=== PATIENT | female | born 1990 | race African-American/Black ===

== ENCOUNTER 2017-03-27 04:00 | Emergency (ER) | payer BC, OTHER ==
[~2017-03-27] VITALS: Ht 165.1 cm; Wt 77.1 kg
--- NOTE | 2017-03-27 04:13 | NUR ---
PT TAKEN TO BED 4
--- NOTE | 2017-03-27 04:17 | NUR ---
Dr. Guerin evaluating patient at bedside.
[2017-03-27 04:19] VITALS: BP 145/84
[2017-03-27] MEDS ORDERED: NACL 0.9% 1,000 ML IV ONE ×2 (04:20→05:00)
[2017-03-27] MEDS ORDERED: ONDANSETRON 4 MG/2 ML VIAL IVP ONE (04:20)
[2017-03-27 04:37] LABS: BASOPHILS # (AUTO) 0.1 K/uL (0.00-0.22); BASOPHILS % (AUTO) 2.7 % (0.0-2.0); EOSINOPHILS # (AUTO) 0.1 K/uL (0-0.4); EOSINOPHILS % (AUTO) 1.4 % (0.0-4.0); HEMATOCRIT 39.6 % (36-48); HEMOGLOBIN 12.8 g/dL (12.0-16.0); LYMPHOCYTES # (AUTO) 1.4 K/uL (2.5-16.5); LYMPHOCYTES % (AUTO) 30.5 % (20.5-51.1); MEAN CORPUSCULAR HEMOGLOBIN 30 pg (27-31); MEAN CORPUSCULAR HGB CONC 32 g/dL (33-37); MEAN CORPUSCULAR VOLUME 93 fL (80-94); MONOCYTES # (AUTO) 0.4 K/uL (0.8-1.0); NEUTROPHILS # (AUTO) 2.5 K/uL (1.8-7.7); NEUTROPHILS % (AUTO) 56.4 % (42.2-75.2); PLATELET COUNT (AUTO) 273 K/uL (140-450); RED BLOOD CELL COUNT(AUTO) 4.26 MIL/uL (4.20-5.40); RED CELL DISTRIBUTION WIDTH 12.8 % (11.6-13.7); WHITE BLOOD COUNT (AUTO) 4.5 K/uL (4.8-10.8)
--- NOTE | 2017-03-27 04:42 | NUR ---
26Y/F PT. BIB FRIEND TO ED WITH C/O VOMITTING. PT. ETOH, BEEN VOMITTING. HX. ASTHMA, HTN AAO X4 WITH EPISODE OF CONFUSION, AMBULATORY WITH ASSIST. RESPIRATIONS ROOM AIR, EVEN AND UNLABORED. SKIN WARM AND DRY TO TOUCH. N/V AT THIS TIME. VSS, ER MADE AWARE OF PT. STATUS.
[2017-03-27 04:52] LABS: ALBUMIN 3.7 g/dL (3.4-5.0); ANION GAP 16.6 (8-16); CALCIUM 8.8 mg/dL (8.5-10.1); CARBON DIOXIDE 24.6 mmol/L (21-32); CREATININE 0.7 mg/dL (0.6-1.3); POTASSIUM 4.2 mmol/L (3.5-5.1); TOTAL BILIRUBIN 0.3 mg/dL (0.0-1.0); TOTAL PROTEIN, SERUM 7.8 g/dL (6.4-8.2)
[2017-03-27] MEDS ORDERED: ACETAMINOPHEN EXTRA STRENGTH 500 MG TAB PO ONE (05:25)
[2017-03-27] MEDS ORDERED: ACETAMINOPHEN EXTRA STRENGTH 500 MG TAB ONE (05:28)
[2017-03-27] MEDS ORDERED: KETOROLAC 30 MG/ML VIAL IVP ONE (05:30)
[2017-03-27] MEDS ORDERED: KETOROLAC 30 MG/ML VIAL ONE (05:38)
--- NOTE | 2017-03-27 06:15 | NUR ---
Patient appears to be resting comfortably in bed. Vital Signs within normal limits. Respirations even and unlabored.
--- NOTE | 2017-03-27 07:07 | NUR ---
Patient discharged with v/s stable. Written and verbal after care instructions given and explained. Patient verbalized understanding. Ambulatory with steady gait. All questions addressed prior to discharge. Advised to follow up with PMD.
[2017-03-27 07:08] VITALS: BP 126/79
== END 2017-03-27 07:07 | disposition home or self-care (01) ==
LOC: MED 04:00
DX: F10.129 Alcohol abuse with intoxication, unspecified (principal)
CPT/HCPCS: 36415; 80053; 85025; 96361; 96374; 96375; 99284; G0482; J1885; J2405; J7030

== ENCOUNTER 2021-11-08 03:52 | Emergency (ER) | payer BC, OTHER ==
[~2021-11-08] VITALS: Ht 165.1 cm; Wt 72.6 kg
[2021-11-08 03:58] VITALS: BP 115/76
--- NOTE | 2021-11-08 04:04 | NUR ---
PT TAKEN TO BED #5
--- NOTE | 2021-11-08 04:06 | NUR ---
RAD AT BEDSIDE
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
[2021-11-08] MEDS ORDERED: IBUPROFEN 800 MG TAB PO ONE (04:55)
[2021-11-08] MEDS ORDERED: IBUP-2218 PO (04:57)
[2021-11-08 05:20] VITALS: BP 120/78
--- NOTE | 2021-11-08 05:20 | NUR ---
Patient discharged with v/s stable. Written and verbal after care instructions given and explained. Patient alert, oriented and verbalized understanding of instructions. Wheel Chair Assisted with to car. All questions addressed prior to discharge. ID band removed. Patient advised to follow up with PMD. Rx of IBUPROFEN given. Opportunity to ask questions provided and answered.
--- NOTE | 2021-11-08 05:26 | NUR ---
The patient's care was reviewed and supervised by Jeanna Blanchard RN.
== END 2021-11-08 05:20 | disposition home or self-care (01) ==
LOC: MED 03:52
DX: S99.911A Unspecified injury of right ankle, initial encounter (principal); V89.2XXA Person injured in unspecified motor-vehicle accident, traffic, initial encounter; Y93.89 Activity, other specified; Y92.89 Other specified places as the place of occurrence of the external cause; Y99.8 Other external cause status
CPT/HCPCS: 29515; 73610; 73630; 99284; Q0092